=== PATIENT | female | born 1955 | race Caucasian/White ===

== ENCOUNTER 2020-02-01 13:23 | Emergency (ER) | payer SELFPAY ==
[~2020-02-01] VITALS: Ht 170.2 cm; Wt 109.0 kg
[2020-02-01] MEDS ORDERED: ONDANSETRON PF 4 MG/2 ML VIAL. IVP ONE (14:00)
[2020-02-01] MEDS ORDERED: KETOROLAC 15 MG/ML VIAL. IVP ONE (14:00)
--- NOTE | 2020-02-01 14:06 | PHYS DOC ---
Past History Past Medical History: Diabetes, Kidney Stones Past Surgical History: , Hysterectomy Alcohol Use: None General Adult EDM: Chief Complaint: FLANK PAIN HPI: HPI: Patient is a 64-year-old female presents with a chief complaint of flank pain. Patient states couple days ago she began to have left flank that is migrated to the right flank pain. Pain is currently 8 out of 10 and "spasm" in nature. Pain is worse with certain movements. Patient denies any radiation to the abdomen or legs. Patient denies any bowel or bladder incontinence. Patient had an episode of vomiting but denies any fevers or chills. Patient's had a cough for about a month which she attributes to allergies. Patient had similar symptoms with kidney stones in the past. Patient denies any trauma Review of Systems: Review of Systems: Constitutional: Denies fever or chills Eyes: Denies change in visual acuity HENT: Denies nasal congestion or sore throat Respiratory: Denies cough or shortness of breath Cardiovascular: Denies chest pain or edema GI: Denies abdominal pain, bloody stools or diarrhea , patient has had one episode of nausea vomiting : Denies dysuria Musculoskeletal: Patient complains of left lumbar back pain Integument: Denies rash Neurologic: Denies headache, focal weakness or sensory changes Endocrine: Denies polyuria or polydipsia Lymphatic: Denies swollen glands Psychiatric: Denies depression or anxiety Current Medications: Current Meds: Current Medications Medications (Trade) Dose Ordered Sig/Gt Start Time Stop Time Status Last Admin Dose Admin Ketorolac Tromethamine (Toradol 15mg Vial) 15 mg 1X ONCE 02/01/20 14:00 02/01/20 14:01 02/01/20 13:57 15 MG Ondansetron HCl (Zofran) 4 mg 1X ONCE 02/01/20 14:00 02/01/20 14:01 02/01/20 13:56 4 MG Allergies: Allergies: Allergies Coded Allergies Type Severity Reaction Last Updated Verified morphine Allergy Unknown 02/01/20 Yes Physical Exam: PE: Constitutional: Well developed, well nourished, no acute distress, non-toxic appearance. [] HENT: Normocephalic, atraumatic, bilateral external ears normal, no trismus nose normal. [] Eyes: PERRLA, EOMI, conjunctiva normal, no discharge. [] Neck: Normal range of motion, no tenderness, supple, no stridor. [] Cardiovascular:Heart rate regular rhythm peripheral pulses are intact cap refill is brisk Lungs & Thorax: Bilateral breath sounds clear, no respiratory distress Abdomen: Bowel sounds normal, soft, no tenderness, no masses, no pulsatile masses. [] Skin: Warm, dry, no erythema, no rash. [] Back: Tender to palpate in the left flank and lumbar area Extremities: No tenderness, no cyanosis, no clubbing, ROM intact, no edema. [] Neurologic: Alert and oriented X 3, normal motor function, normal sensory function, no focal deficits noted. [] Psychologic: Affect normal, judgement normal, mood normal. [] Current Patient Data: Labs: Laboratory Tests Test 02/01/20 13:38 02/01/20 13:50 Urine Collection Type Unknown Urine Color Yellow Urine Clarity Clear Urine pH 6.5 Urine Specific [place] 1.020 Urine Protein Neg Urine Glucose (UA) >=1000 mg/dL Urine Ketones (Stick) Neg mg/dL Urine Blood Trace Urine Nitrite Neg Urine Bilirubin Neg Urine Urobilinogen Dipstick 0.2 mg/dL Urine Leukocyte Esterase Neg Urine RBC 1-2 /HPF Urine WBC Occ /HPF Urine Squamous Epithelial Cells Occ /LPF Urine Bacteria Few /HPF White Blood Count 5.7 x10^3/uL Red Blood Count 4.48 x10^6/uL Hemoglobin 12.9 g/dL Hematocrit 39.7 % Mean Corpuscular Volume 89 fL Mean Corpuscular Hemoglobin 29 pg Mean Corpuscular Hemoglobin Concent 33 g/dL Red Cell Distribution Width 14.4 % Platelet Count 138 x10^3/uL Neutrophils (%) (Auto) 58 % Lymphocytes (%) (Auto) 31 % Monocytes (%) (Auto) 9 % Eosinophils (%) (Auto) 2 % Basophils (%) (Auto) 1 % Neutrophils # (Auto) 3.3 x10^3uL Lymphocytes # (Auto) 1.8 x10^3/uL Monocytes # (Auto) 0.5 x10^3/uL Eosinophils # (Auto) 0.1 x10^3/uL Basophils # (Auto) 0.0 x10^3/uL Sodium Level 138 mmol/L Potassium Level 4.3 mmol/L Chloride Level 101 mmol/L Carbon Dioxide Level 29 mmol/L Anion Gap 8 Blood Urea Nitrogen 13 mg/dL Creatinine 1.0 mg/dL Estimated GFR (Cockcroft-Gault) 56.0 BUN/Creatinine Ratio 13 Glucose Level 395 mg/dL Calcium Level 9.2 mg/dL Total Bilirubin 0.4 mg/dL Aspartate Amino Transf (AST/SGOT) 27 U/L Alanine Aminotransferase (ALT/SGPT) 44 U/L Alkaline Phosphatase 75 U/L Total Protein 7.3 g/dL Albumin 3.7 g/dL Albumin/Globulin Ratio 1.0 Lipase 427 U/L Current Medications Medications (Trade) Dose Ordered Sig/Gt Route PRN Reason Start Time Stop Time Status Last Admin Dose Admin Ketorolac Tromethamine (Toradol 15mg Vial) 15 mg 1X ONCE IVP 02/01/20 14:00 02/01/20 14:01 DC 02/01/20 13:57 Ondansetron HCl (Zofran) 4 mg 1X ONCE IVP 02/01/20 14:00 02/01/20 14:01 DC 02/01/20 13:56 Vital Signs: Vital Signs Date Time Temp Pulse Resp B/P (MAP) Pulse Ox O2 Delivery O2 Flow Rate FiO2 02/01/20 13:37 96.8 80 18 157/87 (110) 97 Room Air EKG: EKG: [] Radiology/Procedures: Radiology/Procedures: [][address] [address] IMAGING REPORT Signed PATIENT: LEÓN YUAN ACCOUNT: [id number] : 1955 LOCATION: ER AGE: 64 SEX: F EXAM STATUS: REG ER ORD. PHYSICIAN: SARAHI NEWMAN MD REASON: FLANK PAIN, HX KIDNEY STONE PROCEDURE: CT ABDOMEN PELVIS WO CONTRAST Examination: CT ABDOMEN+PELVIS WO History: FLANK PAIN, HX KIDNEY STONE Comparison/Correlation: None Findings: Axial images of the abdomen and pelvis with and without contrast. Sagittal and coronal reformatted images were provided. The visualized lung bases are clear. Subtle nodular contour of the liver is present. Fatty infiltration of the liver is present. Spleen measures 16.2 cm longitudinal. Small hiatal hernia is present. Small varices involving the upper abdomen about the gastroesophageal junction are present. Stomach is moderately distended with debris. Adrenal glands are normal. No radiopaque collecting system calculi. There is subtle stranding about the urinary bladder anteriorly. Subtle lobular contour of the urinary bladder which is partially distended is seen. Diverticulosis of the colon noted. No loculated collection or focal inflammatory finding. Appendix is normal. No bowel obstruction or extraluminal gas. Small umbilical hernia contains omental fat. Small left inguinal hernia contains omental fat. No acute bony process. Impression: Findings of hepatic cirrhosis and associated splenomegaly. Upper abdominal varices. No radiopaque collecting system calculi. No obstruction. Diverticulosis without findings of acute inflammation. Subtle stranding about the urinary bladder is seen anteriorly. Questionable wall thickening of the urinary bladder anteriorly. Urinary bladder is not fully di stended on this exam. Correlate for underlying cystitis. Consider further evaluation on a nonemergent basis otherwise. Small hiatal hernia. PQRS Compliance Statement: One or more of the following individualized dose reduction techniques were utilized for this examination: 1. Automated exposure control 2. Adjustment of the mA and/or kV according to patient size 3. Use of iterative reconstruction technique Electronically signed by: Raoul Beatty MD (02/01/2020 2:40 PM) [id number] DICTATED AND SIGNED BY: RAOUL BEATTY MD DATE: 02/01/20 143 CC: SARAHI NEWMAN MD; PCP,NO ~MTH0 0 Heart Score: Risk Factors: Risk Factors: DM, Current or recent (<one month) smoker, HTN, HLP, family his tory of CAD, obesity. Risk Scores: Score 0 - 3: 2.5% MACE over next 6 weeks - Discharge Home Score 4 - 6: 20.3% MACE over next 6 weeks - Admit for Clinical Observation Score 7 - 10: 72.7% MACE over next 6 weeks - Early Invasive Strategies Course & Med Decision Making: Course & Med Decision Making Pertinent Labs and Imaging studies reviewed. (See chart for details) [] 64-year-old female presents with back pain. CT was done to rule out kidney stones. There is no ureteral stone seen. Patient does have cirrhosis on her CT which she did not know she had. Discussed with patient need for follow-up with a GI doctor. On reassessment pain is change after the Toradol. Patient given a low dose of Dilaudid and a prescription for pain meds for home. Return precautions given. Patient also has hyperglycemia without evidence of DKA. Patient will be treated for a minor urinary tract infection. Dragon Disclaimer: Dragon Disclaimer: This electronic medical record was generated, in whole or in part, using a voice recognition dictation system. Departure Departure: Impression: Primary Impression: Back pain Additional Impressions: Cirrhosis Urinary tract infection Disposition: 01 DC HOME SELF CARE/HOMELESS Condition: STABLE Referrals: PCP,VÍCTOR (PCP) SARAHI IQBAL MD 2-3 DAYS Patient Instructions: Back Pain, Adult, Cirrhosis Additional Instructions: EMERGENCY DEPARTMENT GENERAL DISCHARGE INSTRUCTIONS THANK YOU for coming to [facility] Emergency Department (ED) today and trusting us with your care. We trust that you had a positive experience in our Emergency Department. If you wish to speak to the department Management you can contact the emergency department at YOUR FOLLOW UP INSTRUCTIONS ARE FOLLOWS: Do you have a private doctor? If you do not have a private doctor, please ask for a resource list of physicians or clinics that may be able to assist you with follow up care. The Emergency Physician has interpreted your x-rays. The X-ray specialist will also review them. If there is a change in the findings you will be notified in 48 hours when at all possible. A lab test or lab culture may have been done, your results will be reviewed and you will be notified if you need a change in treatment. ADDITIONAL INSTRUCTIONS AND INFORMATION Your care today has been supervised by a physician who is specially trained in emergency care. Many problems require more than one evaluation for a complete diagnosis and treatment. We recommend that you schedule your follow up appointment as recommended to ensure complete treatment of your illness or injury. If you are unable to obtain follow up care and continue to have a problem, or if your condition worsens we recommend that you return to the ED. We are not able to safely determine your condition over the phone nor are we able to give sound medical advice over the phone. For these safety reasons, if you call for medical advice we will ask you to come to the ED for further evaluation If you have any questions regarding these discharge instructions please call the ED at SAFETY INFORMATION In the interest of safety, wellness, and injury prevention; we encourage you to wear your seatbelt, if you smoke; quit smoking, and we encourage your family to use protective helmet for bicycling and other sporting events that present an increased risk for head injury. IF YOUR SYMPTOMS WORSEN OR NEW SYMPTOMS DEVELOP, OR YOU HAVE CONCERNS ABOUT YOUR CONDITION; OR IF YOUR CONDITION WORSENS WHILE YOU ARE WAITING FOR YOUR FOLLOW UP APPOINTMENT; EITHER CONTACT YOUR PRIMARY CARE DOCTOR, THE PHYSICIAN WHOSE NAME AND NUMBER YOU WERE GIVEN, OR RETURN TO THE ED IMMEDIATELY. Scripts Nitrofurantoin Monohyd/M-Cryst (MACROBID 100 MG CAPSULE) 100 Mg Capsule 1 CAP PO BID for UTI for 7 Days, #14 CAP 0 Refills Prov: SARAHI NEWMAN MD 02/01/20 Tramadol Hcl (ULTRAM) 50 Mg Tablet 1 TAB PO PRN Q6HRS PRN for pain MDD 4 Tablet(s) for 4 Days, #15 TAB 0 Refills Prov: SARAHI NEWMAN MD 02/01/20 SARAHI NEWMAN MD Feb 01, 2020 14:06
[2020-02-01 14:18] LABS: CALCIUM 9.2 mg/dL (8.5-10.1); POTASSIUM 4.3 mmol/L (3.5-5.1)
[2020-02-01 14:21] LABS: BILIRUBIN,URINE NEG (NEG); CLARITY,URINE CLEAR; COLOR,URINE YELLOW; GLUCOSE,URINE >=1000 mg/dL (NEG); NITRITE,URINE NEG (NEG); UROBILINOGEN,URINE 0.2 mg/dL (0.2 mg/dL)
[2020-02-01 14:22] LABS: BACTERIA,URINE FEW /HPF (0-FEW); SQUAMOUS EPITHELIAL CELL,UR OCC /LPF; WBC,URINE OCC /HPF (0-4)
[2020-02-01 14:22] LABS: BASO % 1 % (0-3); EOS # 0.1 x10^3/uL (0.0-0.7); EOS % 2 % (0-3); HEMATOCRIT 39.7 % (36.0-47.0); HEMOGLOBIN 12.9 g/dL (12.0-15.5); LYMPH # 1.8 x10^3/uL (1.0-4.8); LYMPH % 31 % (24-48); MEAN CORPUSCULAR HEMOGLOBIN 29 pg (25-35); MEAN CORPUSCULAR HGB CONC 33 g/dL (31-37); MEAN CORPUSCULAR VOLUME 89 fL (79-100); MONO # 0.5 x10^3/uL (0.0-1.1); MONO % 9 % (0-9); NEUT # 3.3 x10^3uL (1.8-7.7); NEUT % 58 % (31-73); PLATELET COUNT 138 x10^3/uL (140-400); RED BLOOD COUNT 4.48 x10^6/uL (3.50-5.40); RED CELL DISTRIBUTION WIDTH 14.4 % (11.5-14.5); WHITE BLOOD COUNT 5.7 x10^3/uL (4.0-11.0)
[2020-02-01 14:24] LABS: ALBUMIN 3.7 g/dL (3.4-5.0); TOTAL BILIRUBIN 0.4 mg/dL (0.2-1.0); TOTAL PROTEIN 7.3 g/dL (6.4-8.2)
--- NOTE | 2020-02-01 14:42 | RAD ---
Examination: CT ABDOMEN+PELVIS WO History: FLANK PAIN, HX KIDNEY STONE Comparison/Correlation: None Findings: Axial images of the abdomen and pelvis with and without contrast. Sagittal and coronal refo rmatted images were provided. The visualized lung bases are clear. Subtle nodular contour of the liver is present. Fatty infiltrati on of the liver is present. Spleen measures 16.2 cm longitudinal. Small hiatal hernia is present. Sma ll varices involving the upper abdomen about the gastroesophageal junction are present. Stomach is moderately distended with debris. Adrenal glands are normal. No radiopaque collecting system calculi. There is subtle stranding about the urinary bladder anteriorly. Subtle lobular contour of the urinary bladder which is partially distended is seen. Diverticulosis of the colon noted. No loculated collection or focal inflammatory finding. Appendix is normal. No bowel obstruction or extraluminal gas. Small umbilical hernia contains omental fat. Small left ing uinal hernia contains omental fat. No acute bony process. Impression: Findings of hepatic cirrhosis and associated splenomegaly. Upper abdominal varices. No radiopaque collecting system calculi. No obstruction. Diverticulosis without findings of acute inflammation. Subtle stranding about the urinary bladder is seen anteriorly. Questionable wall thickening of the ur inary bladder anteriorly. Urinary bladder is not fully distended on this exam. Correlate for underlyi ng cystitis. Consider further evaluation on a nonemergent basis otherwise. Small hiatal hernia. PQRS Compliance Statement: One or more of the following individualized dose reduction techniques were utilized for this examinat ion: 1. Automated exposure control 2. Adjustment of the mA and/or kV according to patient size 3. Use of iterative reconstruction technique Electronically signed by: Raoul Rivera MD (02/01/2020 2:40 PM) [id number]
[2020-02-01] MEDS ORDERED: NITR100C62 PO (15:08)
[2020-02-01] MEDS ORDERED: TRAM-48 PO (15:08)
[2020-02-01] MEDS ORDERED: HYDROmorphone PF 1 MG/ML DISP.SYRIN IVP ONE (15:15)
[2020-02-01 16:00] VITALS: BP 168/80
== END 2020-02-01 16:01 | disposition home or self-care (01) ==
LOC: ER 13:23
DX: N39.0 Urinary tract infection, site not specified (principal); K74.60 Unspecified cirrhosis of liver; M54.5 Low back pain; R05 Cough; R11.2 Nausea with vomiting, unspecified; E11.9 Type 2 diabetes mellitus without complications; Z87.442 Personal history of urinary calculi; Z90.710 Acquired absence of both cervix and uterus; Z98.890 Other specified postprocedural states; Z88.6 Allergy status to analgesic agent
CPT/HCPCS: 36415; 74176; 80053; 81001; 83690; 85025; 96374; 96375; 99284; J1170; J1885; J2405

== ENCOUNTER 2020-02-19 02:11 | Emergency (ER) | payer SELFPAY ==
[~2020-02-19] VITALS: Ht 170.2 cm; Wt 109.0 kg
[~2020-02-19 02:11] MED LIST: NITR100C62 PO; TRAM-48 PO
--- NOTE | 2020-02-19 02:14 | PHYS DOC ---
Past History Past Medical History: Arthritis, Diabetes, Hypertension, Kidney Stones, UTI Past Medical History Cirrhosis Past Surgical History: , Hysterectomy Smoking: Cigarettes Alcohol Use: None General Adult HPI: HPI: ".. This is like when I was here on the 01/31.. same vilma pain.. it got better with the pain meds and antibiotics.. I ve had 4 other episodes..but to night the pain would not let me get to sleep... " Patient is a 64 year old female who presents with above hx of back and Lt. flank pain. Pt. seen 02/01/20 for similar presentation, and CT at that time showed no surgical findings of pain. Pt. did have Diverticulosis without findings of Diverticulitis. Some findings suggestive of urinary bladder cysitis. Appendix was normal. Pt. discharged with diagnosis of UTI, Cirrhosis and Back pain to follow up with primary. Pt. was to take Marcobid for UTI and Tramadol for pain. Patient states she took all of her pain meds and UTI meds as told. Pt. follows with AMPOULE FILLER at [facility]. Clinic. .Patient has past history of cirrhosis, esophageal varices, hypertension, chronic back pain, diabetes, chronic bronchitis, COPD, and elevated cholesterol. Patient advised she is down to 3 to 4 cigarettes a day usually after lunch and dinner. Review of Systems: Review of Systems: Constitutional: Denies fever or chills Eyes: Denies change in visual acuity HENT: Denies nasal congestion or sore throat Respiratory: Denies cough or shortness of breath Cardiovascular: Denies chest pain or edema GI: Complaints of Rt. flnak abdominal pain, nausea,. Denies vomiting, bloody stools or diarrhea : Denies dysuria Musculoskeletal: Complaints of chronic back pain and joint pain Integument: Denies rash Neurologic: Denies headache, focal weakness or sensory changes Endocrine: Denies polyuria or polydipsia Lymphatic: Denies swollen glands Psychiatric: Denies depression or anxiety Family History: Family History: Noncontributory to presentation Current Medications: Current Meds: See nursing for home meds Allergies: Allergies: Allergies Coded Allergies Type Severity Reaction Last Updated Verified morphine Allergy Unknown 02/01/20 Yes Physical Exam: PE: Constitutional: Moderate acute distress, non-toxic appearance. [] HENT: Normocephalic, atraumatic, bilateral external ears normal, oropharynx moist, no oral exudates, nose normal. [] Eyes: PERRLA, EOMI, conjunctiva normal, no discharge. [] Neck: Normal range of motion, no tenderness, supple, no stridor. [] Cardiovascular:Heart rate regular rhythm, no murmur, PMI to the left Lungs & Thorax: Bilateral breath sounds equal apex with scattered wheezes on auscultation [] Abdomen: Bowel sounds decreased, soft, right flank tenderness, no masses, no pulsatile masses. [Obese. Old scars. Distended. Skin: Warm, dry, no erythema, no rash. [] Back: No tenderness, right flank CVA tenderness. [] Extremities: No tenderness, no cyanosis, no clubbing, ROM intact, ankle edema. No cording appreciated Neurologic: Alert and oriented X 3, moves all extremities on request, does have distal sensory, no focal deficits noted. [] DTRs +2 patella. Psychologic: Affect anxious, judgement normal, mood normal. [] EKG: EKG: My interpretation EKG shows a sinus rhythm at 74 bpm. No findings of acute STEMI of contralateral changes [] Radiology/Procedures: Radiology/Procedures: [][place] [address] IMAGING REPORT Signed PATIENT: LEÓN YUAN ACCOUNT: [id number] : 1955 LOCATION: ER AGE: 64 SEX: F EXAM STATUS: REG ER ORD. PHYSICIAN: ALTON SHABAZZ MD REASON: sever rt. sided flank pain, PROCEDURE: CT ABDOMEN PELVIS WO CONTRAST INDICATION: Reason: sever rt. sided flank pain, / Spl. Instructions: / History: . COMPARISON: February 01, 2020 TECHNIQUE: Axial CT images obtained through the abdomen and pelvis without contrast. One or more of the following individualized dose reduction techniques were utilized for this examination: 1. Automated exposure control; 2. Adjustment of the mA and/or kV according to patient size; 3. Use of iterative reconstruction technique. FINDINGS: Small hiatal hernia versus mild distention distal esophagus. Calcific atherosclerosis throughout the vasculature. Subcutaneous edema is seen of the fat of the anterior pelvis with skin thickening. Also seen on prior. There are some mildly prominent groin lymph n odes. Fat-containing left greater than right inguinal hernia. Cirrhotic liver morphology. No peripancreatic fluid collection. Spleen prominent in size. No hydronephrosis. Urinary bladder is partially distended. Mild haziness to the fat anterior to the urinary bladder again seen with some prominence of the wall. Lobulated appearance of the renal contour. Most prominent on the right. Prominence of the rectal wall but not very distended within the region. Colonic diverticulosis. No periappendiceal inflammatory changes. Degenerative changes the spine with multilevel central canal and neural foraminal stenosis. IMPRESSION: * Repeat demonstration of wall thickening of urinary bladder with adjacent edema to the fat. Would correlate with symptoms in the region since causes such as cystitis or a bladder wall lesion could have this appearance. * Subcutaneous edema is seen at the pelvic soft tissues anteriorly. Would correlate with physical exam findings. Some possible causes would include cellulitis or soft tissue contusion. * Colonic diverticulosis. * Rectal wall is mildly prominent but not distended. Most likely from a region of contraction unless the patient is having symptoms of distal colitis or rectal wall lesion. * Cirrhotic liver morphology. * Lobulated contour of the right kidney. May be helpful to obtain a nonemergent CT, MRI or ultrasound renal protocol to ensure that this is secondary to lobulated cortical tissue and there is no underlying lesion contributing. Electronically signed by: Franco Thorne MD (02/19/2020 6:12 AM) [id number] DICTATED AND SIGNED BY: FRANCO THORNE MD DATE: 02/19/20 0602 CC: ALTON SHABAZZ MD; PCP,NO ~MTH0 0 Heart Score: HEART Score for Chest Pain: HEART Score for Chest Pain Response (Comments) Value History Slighlty/Non-Suspicious 0 ECG Nonspecific Repolarizatio 1 Age >45 - < 65 1 Risk Factors 1 or 2 Risk Factors 1 Troponin < Normal Limit 0 Total 3 Risk Factors: Risk Factors: DM, Current or recent (<one month) smoker, HTN, HLP, family history of CAD, obesity. Risk Scores: Score 0 - 3: 2.5% MACE over next 6 weeks - Discharge Home Score 4 - 6: 20.3% MACE over next 6 weeks - Admit for Clinical Observation Score 7 - 10: 72.7% MACE over next 6 weeks - Early Invasive Strategies Course & Med Decision Making: Course & Med Decision Making Pertinent Labs and Imaging studies reviewed. (See chart for details) Patient remain on clear fluid diet for the next 24 to 48 hours. After stool is still having pain consider reexam and possible CT with contrast. Follow-up primary care. Return if any concerns. Take Tylenol and ibuprofen for pain. No solids or milk products. Must allow bowel rest. Reviewed with patient labs and x-ray results. Must follow-up. Frequent accu checks. Review ED work-up with primary care. Return if any concerns. Impression: 1. Rt. Flank Abdomen pain- Renal Colic? 2. HTN 3. DM 185 4. Thrombocytopenia 139 5. Constipation [] Dragon Disclaimer: Dragon Disclaimer: This electronic medical record was generated, in whole or in part, using a voice recognition dictation system. Departure Departure: Referrals: PCP,NO (PCP) Dragon Disclaimer This chart was dictated in whole or in part using Voice Recognition software in a busy, high-work load, and often noisy Emergency Department environment. It may contain unintended and wholly unrecognized errors or omissions. Dragon Disclaimer This chart was dictated in whole or in part using Voice Recognition software in a busy, high-work load, and often noisy Emergency Department environment. It may contain unintended and wholly unrecognized errors or omissions. Dragon Disclaimer This chart was dictated in whole or in part using Voice Recognition software in a busy, high-work load, and often noisy Emergency Department environment. It may contain unintended and wholly unrecognized errors or omissions. ALTON SHABAZZ MD Feb 19, 2020 02:14
--- NOTE | 2020-02-19 02:54 | EKG ---
[address] [address] Test Date: 2020-02-19 Test Time: 02:36:59 Pat Name: LEÓN YUAN Department: Room: Gender: F Safety Investigator/Cause Analyst: : 1955 Requested By: ALTON SHABAZZ Order Number: [id number] Reading MD: Kip Hinkle Measurements Intervals Mona Rate: 74 P: 51 CA: 130 QRS: 1 QRSD: 84 T: 28 QT: 420 QTc: 467 Interpretive Statements SINUS RHYTHM Electronically Signed On 02-19-2020 15:02:08 [employer] by Kip Hinkle
[2020-02-19] MEDS ORDERED: IV RINGERS SOLUTION,LACTATED 1,000 ML IV SCH (03:00)
[2020-02-19] MEDS ORDERED: KETOROLAC 30 MG/ML VIAL. IVP ONE (03:00)
[2020-02-19] MEDS ORDERED: FAMOTIDINE 20 MG/2 ML VIAL IVP ONE (03:00)
[2020-02-19] MEDS ORDERED: ONDANSETRON PF 4 MG/2 ML VIAL. IVP ONE (03:00)
[2020-02-19 03:04] LABS: BASO % 1 % (0-3); EOS # 0.1 x10^3/uL (0.0-0.7); EOS % 2 % (0-3); HEMATOCRIT 38.6 % (36.0-47.0); HEMOGLOBIN 12.9 g/dL (12.0-15.5); LYMPH # 1.8 x10^3/uL (1.0-4.8); LYMPH % 28 % (24-48); MEAN CORPUSCULAR HEMOGLOBIN 29 pg (25-35); MEAN CORPUSCULAR HGB CONC 33 g/dL (31-37); MEAN CORPUSCULAR VOLUME 86 fL (79-100); MONO # 0.5 x10^3/uL (0.0-1.1); MONO % 8 % (0-9); NEUT # 3.9 x10^3uL (1.8-7.7); NEUT % 61 % (31-73); PLATELET COUNT 139 x10^3/uL (140-400); RED CELL DISTRIBUTION WIDTH 13.9 % (11.5-14.5); WHITE BLOOD COUNT 6.4 x10^3/uL (4.0-11.0)
[2020-02-19 03:16] LABS: CALCIUM 9.2 mg/dL (8.5-10.1); CREATININE 0.9 mg/dL (0.6-1.0); GFR 63.2; POTASSIUM 4.4 mmol/L (3.5-5.1)
[2020-02-19 03:21] LABS: ALBUMIN 3.8 g/dL (3.4-5.0); DIRECT BILIRUBIN 0.2 mg/dL (0.0-0.2); TOTAL BILIRUBIN 0.4 mg/dL (0.2-1.0); TOTAL PROTEIN 7.7 g/dL (6.4-8.2)
[2020-02-19 05:48] LABS: BACTERIA,URINE 0 /HPF (0-FEW); BILIRUBIN,URINE NEG (NEG); CLARITY,URINE CLEAR; COLOR,URINE YELLOW; GLUCOSE,URINE NEG (NEG); NITRITE,URINE NEG (NEG); RBC,URINE 0 /HPF (0-2); SQUAMOUS EPITHELIAL CELL,UR OCC /LPF; UROBILINOGEN,URINE 0.2 mg/dL (0.2 mg/dL); WBC,URINE OCC /HPF (0-4)
[2020-02-19 06:11] LABS: AMPHETAMINE/METHAMPHETAMINE NEG (NEG); BARBITURATES NEG (NEG); BENZODIAZEPINES NEG (NEG); CANNABINOIDS NEG (NEG); COCAINE NEG (NEG); METHADONE NEG (NEG); OPIATES NEG (NEG); PHENCYCLIDINE NEG (NEG)
--- NOTE | 2020-02-19 06:14 | RAD ---
INDICATION: Reason: sever rt. sided flank pain, / Spl. Instructions: / History: . COMPARISON: February 01, 2020 TECHNIQUE: Axial CT images obtained through the abdomen and pelvis without contrast. One or more of the following individualized dose reduction techniques were utilized for this examinat ion: 1. Automated exposure control; 2. Adjustment of the mA and/or kV according to patient size; 3 . Use of iterative reconstruction technique. FINDINGS: Small hiatal hernia versus mild distention distal esophagus. Calcific atherosclerosis throughout the vasculature. Subcutaneous edema is seen of the fat of the anterior pelvis with skin thickening. Also seen on prior . There are some mildly prominent groin lymph nodes. Fat-containing left greater than right inguinal hernia. Cirrhotic liver morphology. No peripancreatic fluid collection. Spleen prominent in size. No hydronephrosis. Urinary bladder is partially distended. Mild haziness to the fat anterior to the urinary bladder agai n seen with some prominence of the wall. Lobulated appearance of the renal contour. Most prominent on the right. Prominence of the rectal wall but not very distended within the region. Colonic diverticu losis. No periappendiceal inflammatory changes. Degenerative changes the spine with multilevel central canal and neural foraminal stenosis. IMPRESSION: * Repeat demonstration of wall thickening of urinary bladder with adjacent edema to the fat. Would c orrelate with symptoms in the region since causes such as cystitis or a bladder wall lesion could hav e this appearance. * Subcutaneous edema is seen at the pelvic soft tissues anteriorly. Would correlate with physical ex am findings. Some possible causes would include cellulitis or soft tissue contusion. * Colonic diverticulosis. * Rectal wall is mildly prominent but not distended. Most likely from a region of contraction unless the patient is having symptoms of distal colitis or rectal wall lesion. * Cirrhotic liver morphology. * Lobulated contour of the right kidney. May be helpful to obtain a nonemergent CT, MRI or ultrasoun d renal protocol to ensure that this is secondary to lobulated cortical tissue and there is no underl elizabeth lesion contributing. Electronically signed by: Miguel A Thorne MD (02/19/2020 6:12 AM) [id number]
[2020-02-19 06:50] VITALS: BP 156/103
[2020-02-19] MEDS ORDERED: KETOROLAC 15 MG/ML VIAL. IVP ONE (07:00)
[2020-02-19] MEDS ORDERED: MAGNESIUM HYDROXIDE 2,400 MG/30 ML ORAL.SUSP. PO ONE (07:00)
--- NOTE | 2020-02-19 07:18 | RAD ---
PROCEDURE: XR ABDOMEN COMP ACUTE STUDY DATE: 02/19/2020 CLINICAL INDICATION / HISTORY: Reason: Lt. abd. and back pain. Low Lt chest/back pain / Spl. Instruct ions: / History: . TECHNIQUE: Upright PA chest, supine and upright films of the abdomen were obtained. COMPARISON: Abdomen pelvis CT of 02/01/2020 FINDINGS: AP view the chest reveals the lungs to be clear. Cardiac and mediastinal silhouette are u nremarkable. No free air is identified below the diaphragms. Supine and decubitus views of the abdo men reveal no dilated loops of bowel or air-fluid levels. No organomegaly is present. No destructiv e osseous lesions. IMPRESSION: No radiographic evidence for bowel obstruction. Electronically signed by: Joe Howard MD (02/19/2020 7:15 AM) [id number]
== END 2020-02-19 06:50 | disposition home or self-care (01) ==
LOC: ER 02:11
DX: K59.00 Constipation, unspecified (principal); D69.6 Thrombocytopenia, unspecified; I10 Essential (primary) hypertension; E11.9 Type 2 diabetes mellitus without complications; G89.29 Other chronic pain; M19.90 Unspecified osteoarthritis, unspecified site; J44.9 Chronic obstructive pulmonary disease, unspecified; F17.210 Nicotine dependence, cigarettes, uncomplicated; E78.00 Pure hypercholesterolemia, unspecified; Z87.442 Personal history of urinary calculi; Z87.440 Personal history of urinary (tract) infections; Z90.710 Acquired absence of both cervix and uterus; Z98.890 Other specified postprocedural states; Z88.5 Allergy status to narcotic agent
CPT/HCPCS: 36415; 74022; 74176; 80048; 80076; 80307; 81001; 82150; 82550; 83690; 84484; 85025; 85610; 85730; 93005; 96361; 96374; 96375; 99285; J1885; J2405; J3490; J7120